=== PATIENT | male | born 1975 | race Caucasian/White ===

== ENCOUNTER 2016-09-29 08:25 | Day surgery (SDC) | payer OTHER ==
[~2016-09-29] VITALS: Ht 172.7 cm; Wt 80.7 kg
[~2016-09-29 08:25] MED LIST: ADVIL,NUPRIN,M200 MG PO; FIORICET,ESG1 TABLET PO; PERCOCET 10/1 TABLET PO
[2016-09-29 09:02] VITALS: BP 120/84
[2016-09-29 14:25] VITALS: BP 118/78
[2016-09-29 15:20] VITALS: BP 130/80
== END 2016-09-29 15:30 | disposition home or self-care (01) ==
LOC: SDC 08:25
DX: M51.26 Other intervertebral disc displacement, lumbar region (principal); M48.06 Spinal stenosis, lumbar region; F17.210 Nicotine dependence, cigarettes, uncomplicated
CPT/HCPCS: J0131; J1100; J1170; J1885; J2250; J2405; J3010

== ENCOUNTER 2017-08-22 12:09 | Emergency (ER) | payer OTHER ==
[~2017-08-22] VITALS: Ht 172.7 cm; Wt 92.2 kg
[2017-08-22 12:17] VITALS: BP 141/99
[2017-08-22] MEDS ORDERED: PERCOCET 5/31 TABLET PO (13:52)
[2017-08-22] MEDS ORDERED: PREDNISONE50 MG PO (13:52)
== END 2017-08-22 14:37 | disposition home or self-care (01) ==
LOC: EME 12:09
DX: M54.5 Low back pain (principal); N50.812 Left testicular pain; R53.1 Weakness; G89.29 Other chronic pain; F17.200 Nicotine dependence, unspecified, uncomplicated
CPT/HCPCS: 99281; 99284

== ENCOUNTER 2017-09-14 01:47 | Emergency (ER) | payer OTHER ==
[~2017-09-14] VITALS: Ht 172.7 cm; Wt 83.1 kg
[~2017-09-14 01:47] MED LIST changes: +PERCOCET 5/31 TABLET PO; +PREDNISONE50 MG PO
[2017-09-14 03:48] LABS: APPEARANCE CLEAR ((CLEAR)); BILIRUBIN NEGATIVE; BLOOD SMALL; COLOR YELLOW ((YELLOW)); GLUCOSE (STRIP) NEGATIVE; KETONES NEGATIVE; LEUKOCYTES NEGATIVE; NITRITE NEGATIVE; PROTEIN (STRIP) NEGATIVE; UROBILINOGEN 0.2 MG/DL (0.2-1.0)
[2017-09-14 03:53] LABS: BACTERIA NONE SEEN /HPF; EPITHELIAL CELLS NONE SEEN /HPF; MUCUS TRACE /LPF; RED BLOOD CELLS 0-5 /HPF (0-5); UCUL ADDED? NO; WHITE BLOOD CELLS 0-5 /HPF (0-5)
[2017-09-14] MEDS ORDERED: MEDROL DOSEPAK4 MG PO (05:30)
[2017-09-14] MEDS ORDERED: OXYCODONE HCL10 MG PO (05:30)
[2017-09-14 06:23] VITALS: BP 128/91
== END 2017-09-14 06:25 | disposition home or self-care (01) ==
LOC: EME 01:47
PROVIDERS: Emergency Medicine
DX: M51.26 Other intervertebral disc displacement, lumbar region (principal); G89.29 Other chronic pain; F17.200 Nicotine dependence, unspecified, uncomplicated; Z90.49 Acquired absence of other specified parts of digestive tract
CPT/HCPCS: 72131; 81003; 99281; 99285; J1100; J1885; J3010

== ENCOUNTER 2017-10-08 12:40 | Emergency (ER) | payer OTHER ==
[~2017-10-08] VITALS: Ht 172.7 cm; Wt 79.7 kg
[~2017-10-08 12:40] MED LIST changes: +MEDROL DOSEPAK4 MG PO; +OXYCODONE HCL10 MG PO
[2017-10-08] MEDS ORDERED: LIDODERM 5% P1 PATCH TD (17:55)
[2017-10-08 18:25] VITALS: BP 134/90
[2017-10-09] MEDS ORDERED: PERCOCET 10/1 TABLET PO (17:53)
== END 2017-10-08 18:28 | disposition home or self-care (01) ==
LOC: EME 12:40
DX: M51.26 Other intervertebral disc displacement, lumbar region (principal); G89.29 Other chronic pain; F17.200 Nicotine dependence, unspecified, uncomplicated; Z79.891 Long term (current) use of opiate analgesic; Z90.49 Acquired absence of other specified parts of digestive tract
CPT/HCPCS: 99281; 99285; J1885; J7050

== ENCOUNTER 2017-10-09 15:07 | Emergency (ER) | payer OTHER ==
[~2017-10-09] VITALS: Ht 172.7 cm; Wt 79.3 kg
[~2017-10-09 15:07] MED LIST changes: +LIDODERM 5% P1 PATCH TD
[2017-10-09 15:58] LABS: HEMATOCRIT 43.7 % (38.0-50.0); HEMOGLOBIN 16.1 G/DL (12.5-16.6); MCH 31.8 PG (29.0-34.0); MCHC 36.8 G/DL (30.0-36.0); MCV 86.4 FL (86-99); PLATELET COUNT 317 K/uL (156-360); RBC DIS.WIDTH-CV 12.2 % (11.8-14.6); RBC DIS.WIDTH-SD 38.7 % (39-53); RED BLOOD COUNT 5.06 M/uL (4.00-5.50); WHITE BLOOD COUNT 7.9 K/uL (4.1-10.2)
[2017-10-09 16:13] LABS: CHLORIDE 106 mEq/L (99-109); SODIUM 141 mEq/L (136-147)
[2017-10-09 16:15] LABS: GLUCOSE 147 mg/dL (70-99)
[2017-10-09 16:19] LABS: CREATININE 0.9 mg/dL (0.6-1.3); GFR ESTIMATE (CALCULATED) > 59 mL/min/ (58.99-99999); UREA NITROGEN (BUN) 15 mg/dL (9-23)
[2017-10-09] MEDS ORDERED: PERCOCET 10/1 TABLET PO (17:53)
[2017-10-09 19:06] VITALS: BP 127/88
== END 2017-10-09 19:06 | disposition home or self-care (01) ==
LOC: EME 15:07
PROVIDERS: Family Medicine
DX: M51.16 Intervertebral disc disorders with radiculopathy, lumbar region (principal); W18.49XA Other slipping, tripping and stumbling without falling, initial encounter; X50.1XXA Overexertion from prolonged static or awkward postures, initial encounter; G89.29 Other chronic pain; R35.0 Frequency of micturition; F17.200 Nicotine dependence, unspecified, uncomplicated
CPT/HCPCS: 80048; 85027; 99281; 99285; J2270

== ENCOUNTER 2017-10-20 11:02 | Inpatient (IN) | payer OTHER ==
[~2017-10-20] VITALS: Ht 172.7 cm; Wt 80.5 kg
[2017-10-20 12:08] VITALS: BP 124/80
[2017-10-20 17:26] VITALS: BP 133/78
[2017-10-20 19:32] VITALS: BP 132/88
[2017-10-20 23:46] VITALS: BP 126/85
[2017-10-21 05:15] VITALS: BP 145/91
[2017-10-21 08:33] VITALS: BP 138/90
[2017-10-21 12:23] VITALS: BP 164/98
[2017-10-21 12:47] VITALS: BP 148/88
== END 2017-10-21 12:30 | disposition home or self-care (01) | DRG 520 ==
LOC: SDC 11:02 → 2SOUTH 11:56 → 3EAST 11:56 → ENRESERV 11:58 → SDC 13:35 → 3EAST 17:26
DX: M51.26 Other intervertebral disc displacement, lumbar region (principal); M48.062 Spinal stenosis, lumbar region with neurogenic claudication; M21.372 Foot drop, left foot; F17.200 Nicotine dependence, unspecified, uncomplicated; Z79.891 Long term (current) use of opiate analgesic
CPT/HCPCS: 72020; 76000; J0330; J0690; J1100; J1170; J1885; J2405; J2710; J3010; J3480; J7643